=== PATIENT | male | born 1985 | race Caucasian/White ===

== ENCOUNTER → 2024-03-22 06:26 | Outpatient (REF) | payer BC, SELFPAY ==
[2024-03-22 07:36] LABS: % Basophils 1.4 % (0-2); % Eosinophils 10.5 % (0-6); % Immature Granulocytes 0.2 % (0-0.5); % Lymphocytes 40.1 % (20.5-51.1); % Monocytes 8.3 % (1.7-9.3); % Neutrophils 39.5 % (42.2-75.2); Absolute Basophils 0.1 10^3/uL (0-0.2); Absolute Eosinophils 0.5 10^3/uL (0-0.7); Absolute Monocytes 0.4 10^3/uL (0.1-0.6); Hematocrit 45.8 % (39.0-52.0); Mean Corp Hgb Conc. 32.8 g/dL (33.0-37.0); Mean Corpuscular Hgb 31.4 pg (27.0-31.0); Mean Corpuscular Volume 95.8 fL (80.0-94.0); Mean Platelet Volume 10.2 fL (7.4-10.4); Nucleated Red Blood Cells % 0 % (-); Platelet Count 254 10^3/uL (130-400); Red Blood Cell Count 4.78 10^6/uL (4.70-6.10); Red Cell Dist. Width 12.4 % (11.5-14.5); White Blood Cell Count 4.9 10^3/uL (4.8-10.8)
[2024-03-22 07:46] LABS: ALT (SGPT) 29 U/L (0-50); AST (SGOT) 26 U/L (17-59); Albumin 4.4 g/dl (3.5-5.0); Alkaline Phosphatase 55 U/L (38-126); Blood Urea Nitrogen 18 mg/dl (9-20); Calcium 10.1 mg/dl (8.4-10.2); Carbon Dioxide 25 mmol/L (22-30); Chloride 105 mmol/L (98-107); Glucose 91 mg/dl (70-99); HDL Cholesterol 78 mg/dl; LDL Cholesterol, Calculated 139 mg/dl; Potassium 4.9 mmol/L (3.5-5.1); Sodium 139 mmol/L (135-145); Total Bilirubin 0.8 mg/dl (0.2-1.3); Total Cholesterol 234 mg/dl (50-199); Total Protein 6.9 g/dl (6.3-8.2); Triglyceride 87 mg/dl (10-149); Very Low Density Lipoprotein 17 mg/dl (0-30); eGFR > 60.00
[2024-03-22 08:14] LABS: TSH Reflex To Free T4 0.85 uIU/ml (0.47-4.68)
[2024-03-22 10:55] LABS: Folate 12.3 ng/ml (2.76-20); Vitamin B12 709 pg/ml (239-931)
== END ==
LOC: REG 06:26
PROVIDERS: ATTENDING PHYSICIAN Physician Assistant
DX: Z00.00 Encounter for general adult medical examination without abnormal findings (principal); F41.9 Anxiety disorder, unspecified; Z78.9 Other specified health status; E78.00 Pure hypercholesterolemia, unspecified
CPT/HCPCS: 36415; 80053; 80061; 82607; 82746; 84443; 85025

== ENCOUNTER 2024-04-20 09:52 | Outpatient (RCR) | payer BC, SELFPAY | END 2024-04-20 23:59 | disposition home or self-care (01) | LOC: RPT 09:52 | PROVIDERS: ATTENDING PHYSICIAN Physician Assistant | DX: M75.21 Bicipital tendinitis, right shoulder (principal); M54.50 Low back pain, unspecified; Z73.6 Limitation of activities due to disability | CPT/HCPCS: 97110; 97162; 97535 ==

== ENCOUNTER → 2024-04-25 06:45 | Outpatient (REF) | payer BC, SELFPAY | LOC: MRI 3T 06:45 | PROVIDERS: ATTENDING PHYSICIAN Physician Assistant | DX: M25.511 Pain in right shoulder (principal); M75.21 Bicipital tendinitis, right shoulder | CPT/HCPCS: 73221 ==

== ENCOUNTER → 2024-05-07 18:52 | Outpatient (REF) | payer BC, SELFPAY | LOC: MRI 18:52 | PROVIDERS: ATTENDING PHYSICIAN Pain Medicine Interventional Pain Medicine; FAMILY PHYSICIAN Physician Assistant | DX: M54.50 Low back pain, unspecified (principal) | CPT/HCPCS: 72148 ==

== ENCOUNTER 2024-05-11 09:54 | Outpatient (RCR) | payer BC, SELFPAY | END 2024-05-11 23:59 | disposition home or self-care (01) | LOC: RPT 09:54 | PROVIDERS: ATTENDING PHYSICIAN Physician Assistant | DX: M75.21 Bicipital tendinitis, right shoulder (principal); M54.50 Low back pain, unspecified | CPT/HCPCS: 97110; 97535 ==

== ENCOUNTER 2024-06-22 06:11 | Day surgery (SDC) | payer BC, SELFPAY ==
[2024-06-22] VITALS (8 sets, daily range): BP systolic 120–145; BP diastolic 66–90; BMI 32.6
[2024-06-22] MEDS: CELEBREX 200 MG PO (06:13)
[2024-06-22] MEDS: TYLENOL 1000 MG PO (06:13)
[2024-06-22] MEDS: NORMOSOL-R 1000 IV (06:32)
[2024-06-22] MEDS: DILAUDID 0.25 MG IV (08:50)
== END 2024-06-22 10:06 | disposition home or self-care (01) ==
LOC: SDS 06:11
PROVIDERS: ATTENDING PHYSICIAN Orthopaedic Surgery Hand Surgery
DX: M75.121 Complete rotator cuff tear or rupture of right shoulder, not specified as traumatic (principal)
CPT/HCPCS: 23430; 29827; 29826; C1713; C1776

== ENCOUNTER 2024-07-08 06:23 | Outpatient (RCR) | payer BC, SELFPAY | END 2024-07-08 23:59 | disposition home or self-care (01) | LOC: RPT 06:23 | PROVIDERS: ATTENDING PHYSICIAN Physician Assistant Surgical; FAMILY PHYSICIAN Physician Assistant | DX: Z47.89 Encounter for other orthopedic aftercare (principal); Z73.6 Limitation of activities due to disability; M25.511 Pain in right shoulder | CPT/HCPCS: 97110; 97161 ==

== ENCOUNTER 2024-08-04 09:55 | Emergency (ER) | payer BC, SELFPAY ==
[2024-08-04 10:09] VITALS: BP 152/103
[2024-08-04] MEDS: NSS 1000 IV (11:43)
[2024-08-04 11:58] LABS: Urine Albumin Negative (Neg - Trace); Urine Bilirubin Negative (Negative); Urine Character Slightly Cloudy (Clear); Urine Color Yellow; Urine Glucose Negative (Negative); Urine Ketone 2+ (Negative); Urine Leukocyte Negative (Negative); Urine Nitrite Negative (Negative); Urine Occult Blood 4+ (Negative); Urine Specific Gravity 1.015 (<1.030); Urine Urobilinogen Negative (Neg - 1+)
[2024-08-04 12:02] LABS: % Basophils 0.8 % (0-2); % Eosinophils 5.9 % (0-6); % Immature Granulocytes 0.3 % (0-0.5); % Lymphocytes 26.6 % (20.5-51.1); % Monocytes 7.6 % (1.7-9.3); % Neutrophils 58.8 % (42.2-75.2); Absolute Basophils 0.1 10^3/uL (0-0.2); Absolute Eosinophils 0.4 10^3/uL (0-0.7); Absolute Monocytes 0.6 10^3/uL (0.1-0.6); Absolute Neutrophils 4.4 10^3/uL (1.4-6.5); Hematocrit 43.7 % (39.0-52.0); Hemoglobin 15.1 g/dL (13.0-18.0); Mean Corp Hgb Conc. 34.6 g/dL (33.0-37.0); Mean Corpuscular Hgb 30.6 pg (27.0-31.0); Mean Corpuscular Volume 88.6 fL (80.0-94.0); Mean Platelet Volume 9.6 fL (7.4-10.4); Nucleated Red Blood Cells % 0 % (-); Platelet Count 288 10^3/uL (130-400); Red Blood Cell Count 4.93 10^6/uL (4.70-6.10); Red Cell Dist. Width 12.3 % (11.5-14.5); White Blood Cell Count 7.5 10^3/uL (4.8-10.8)
[2024-08-04 12:06] LABS: Urine Red Blood Cell 80-90 /HPF (0-2); Urine Squamous Cell 0-2 /LPF (Few)
[2024-08-04 12:09] VITALS: BP 132/74
[2024-08-04 12:14] LABS: ALT (SGPT) 29 U/L (0-50); AST (SGOT) 26 U/L (17-59); Albumin 4.8 g/dl (3.5-5.0); Alkaline Phosphatase 76 U/L (38-126); Blood Urea Nitrogen 15 mg/dl (9-20); Calcium 10.1 mg/dl (8.4-10.2); Carbon Dioxide 18 mmol/L (22-30); Chloride 103 mmol/L (98-107); Glucose 88 mg/dl (70-99); Potassium 4.3 mmol/L (3.5-5.1); Sodium 138 mmol/L (135-145); Total Bilirubin 1.1 mg/dl (0.2-1.3); Total Protein 7.2 g/dl (6.3-8.2); eGFR > 60.00
[2024-08-04 13:54] VITALS: BP 136/74
[2024-08-04] MEDS: TORADOL 30 MG IV (14:11)
[2024-08-04] MEDS: FLOMAX 0.4 MG PO (14:11)
--- NOTE | 2024-08-04 14:29 | ED.GENMED ---
History of Present Illness
General
Chief Complaint: Flank Pain
Source: patient
Exam Limitations: none
Time Seen by Provider: 08/04/24 10:49
Nursing documentation reviewed up to this point in time: agreed with
History of Present Illness
History of Present Illness:
39-year-old male past medical history of kidney stones presenting to the emergency department today with concerns of left-sided flank pain over the past day mainly to the left flank area to mild nausea this morning with no ongoing nausea or
vomiting. Denies any fevers chest pain shortness of breath. Last urinary intervention was a few years ago.
Past History
Past History
ED Past Medical History: Other (Has had similar back pain one or 2 times per year for the past 4 years. States she had x-rays of the back before but never had an MRI. )
Social History
Tobacco: Former smoker (Quit 6 months ago)
Personal:
Living: with family
Employment: Employed
Review of Systems
Review of Systems
Allergies reviewed?: Yes
All Other Systems: ROS reviewed and negative except as documented in HPI and ROS
Phy Exam
Physical Exam
Physical Exam:
GENERAL: Alert , in no apparent distress
EYE: pupils equal and reactive
NECK: Supple, no significant adenopathy.
ENT: o/p clr, mmm.
CARDIAC: Regular rate and rhythm .
LUNGS: Clear breath sounds bilaterally, no acute respiratory distress, no wheezes/rales/rhonchi
ABDOMEN: Soft, without focal tenderness, no r/g, no cvat
NEUROLOGICAL: Alert and oriented, no focal neuro deficits
SKIN: Warm and dry, skin intact.
MUSCULOSKELETAL: No edema, well perfused.
PSYCH: Normal and appropriate interaction.
Course
Orders/Labs/Results
Orders:
Orders
08/04/24 11:37
Urine Culture Reflexed from UA [Urinalysis Reflex To Culture] Urgent
Date Specimen was Collected: 08/04/24
Time Specimen was Collected: 11:35
Urine Microscopic Reflex Cult Urgent
08/04/24 11:39
CT Abd/pel Without Iv Or Oral Urgent
Comment:
Reason For Exam: flank pain
0.9% Sodium Chloride 1000 ml [Nss] 1,000 ml IV BOLUS
08/04/24 11:42
Complete Blood Count/With Diff Urgent
Comprehensive Metabolic Panel Urgent
08/04/24 14:02
Ketorolac [Toradol] 30 mg IV NOW STA
Tamsulosin [Flomax] 0.4 mg PO NOW STA
Abnormal Lab Results
08/04/24 08/04/24
11:37 11:42
Carbon Dioxide 18 L mmol/L
(22-30)
Urine Ketones 2+ A
(Negative)
Ur Occult Blood Reflex 4+ A
(Negative)
Urine RBC 80-90 A /HPF
(0-2)
08/04/24 11:42
08/04/24 11:42
Vital Signs
Initial and Last Documented VS:
Initial Vital Signs
Temp Pulse Resp BP Pulse Ox
98.9 F 80 18 152/103 100
08/04/24 10:09 08/04/24 10:09 08/04/24 10:09 08/04/24 10:09 08/04/24 10:09
Last Documented Vital Signs
Temp Pulse Resp BP Pulse Ox
98.9 F 82 18 136/74 98
08/04/24 10:09 08/04/24 13:54 08/04/24 13:54 08/04/24 13:54 08/04/24 13:54
MDM/Problems Addressed
MDM/Problems Addressed:
39-year-old male presenting to the emergency department today with concerns of left-sided flank pain. Afebrile in no obvious distress here had some nausea earlier but not ongoing. Labs were obtained without acute abnormalities no white count
normal renal function urinalysis without signs of infection. CT scan showing 3 mm stone at the distal ureter. Patient appears stable for trial of passage as an outpatient given information for urology follow-up return precautions given.
*Critical Care Note
Total Time (30-74mins, 75-104mins- exclusive of procedures): Not Applicable
ED Attending Note
-
Portions of this chart may have been created with voice recognition software.� Occasional wrong word or��sound alike� substitutions may have occurred due to the inherent limitations of voice recognition software.
Discharge Plan
Departure
Patient Disposition: Home (Routine Discharge)
Date of Disposition: 08/04/24
Time of Disposition: 14:32
Patient with high blood pressure during this ER visit?: No
Condition: Good
Covid-19: Not Applicable
Discharge Problem:
Calculus of left ureter
Instructions: Kidney Stones (DC), How to Strain Your Urine
Prescriptions:
New
ibuprofen 600 mg tablet
600 mg PO Q6H PRN (Reason: Pain) Qty: 14 0RF
tamsulosin [Flomax] 0.4 mg capsule
0.4 mg PO HS Qty: 10 0RF
ondansetron 4 mg tablet,disintegrating
4 mg PO Q6H PRN (Reason: nausea and vomiting) Qty: 7 0RF
No Action
multivitamin Tablet
1 tab PO DAILY
mecobalamin (vitamin B12) 1,000 mcg Tablet,Chewable
1,000 mcg PO DAILY
alprazolam 0.5 mg Tablet
0.5 mg PO PRN PRN (Reason: anxiety)
Referrals:
Gina Abdullahi PA [Family Provider] -
Chet Hardy MD [Active] - Follow up in 5-7 days
Activity Restrictions/Additional Instructions:
You came to the emergency department today with concerns of flank pain you are found to have a distal ureteral stone that is 3 mm in size. Please take the prescribed medications and follow-up closely with the urologist for further management.
Return to the emergency department for any worsening, new or concerning symptoms.
Interventions
Interventions:
*Risk Screen - Suicide Last Done: 08/04/24 10:09
*General Assessment Last Done: 08/04/24 10:09
*Neglect/Abuse Screening Last Done: 08/04/24 10:09
ED- Fall Risk Assessment Last Done: 08/04/24 10:53
XX-Ctvyhy-Eqkvbkmeag Assessment Last Done: 08/04/24 10:53
ED-Male Genitourinary Assessment Last Done: 08/04/24 10:53
Discharge Date and Time
Print Language: MAORI
== END 2024-08-04 14:41 | disposition home or self-care (01) ==
LOC: EMR 09:55
PROVIDERS: Physician Assistant; EMERGENCY PHYSICIAN Emergency Medicine; FAMILY PHYSICIAN Physician Assistant
DX: N20.1 Calculus of ureter (principal); R11.0 Nausea; M19.90 Unspecified osteoarthritis, unspecified site; M10.9 Gout, unspecified; F41.9 Anxiety disorder, unspecified; F32.A Depression, unspecified; Z87.442 Personal history of urinary calculi; Z87.891 Personal history of nicotine dependence; Z88.0 Allergy status to penicillin
CPT/HCPCS: 99284; 96374; 96361; 74176; 80053; 81003; 81015; 85025

== ENCOUNTER 2024-08-05 06:30 | Outpatient (RCR) | payer BC, SELFPAY | END 2024-08-05 23:59 | disposition home or self-care (01) | LOC: RPT 06:30 | PROVIDERS: ATTENDING PHYSICIAN Physician Assistant Surgical; FAMILY PHYSICIAN Physician Assistant | DX: M62.81 Muscle weakness (generalized) (principal); Z47.89 Encounter for other orthopedic aftercare; Z73.6 Limitation of activities due to disability | CPT/HCPCS: 97010; 97110; 97140; 97530 ==

== ENCOUNTER 2024-09-09 08:44 | Outpatient (RCR) | payer BC, SELFPAY | END 2024-09-09 23:59 | disposition home or self-care (01) | LOC: RPT 08:44 | PROVIDERS: ATTENDING PHYSICIAN Physician Assistant Surgical; FAMILY PHYSICIAN Physician Assistant | DX: Z47.89 Encounter for other orthopedic aftercare (principal); Z73.6 Limitation of activities due to disability; M62.81 Muscle weakness (generalized); M25.511 Pain in right shoulder | CPT/HCPCS: 97110; 97140 ==

== ENCOUNTER 2024-10-08 08:48 | Outpatient (RCR) | payer BC, SELFPAY | END 2024-10-08 23:59 | disposition home or self-care (01) | LOC: RPT 08:48 | PROVIDERS: ATTENDING PHYSICIAN Physician Assistant Surgical; FAMILY PHYSICIAN Physician Assistant | DX: Z47.89 Encounter for other orthopedic aftercare (principal); Z73.6 Limitation of activities due to disability; M62.81 Muscle weakness (generalized); M25.511 Pain in right shoulder | CPT/HCPCS: 97110; 97140 ==

== ENCOUNTER → 2024-10-20 17:35 | Outpatient (REF) | payer BC, SELFPAY | LOC: PAVMRI 17:35 | PROVIDERS: ATTENDING PHYSICIAN Physician Assistant | DX: M65.4 Radial styloid tenosynovitis [de Quervain] (principal); G56.91 Unspecified mononeuropathy of right upper limb; M25.512 Pain in left shoulder; M24.812 Other specific joint derangements of left shoulder, not elsewhere classified | CPT/HCPCS: 73221 ==

== ENCOUNTER 2024-11-09 06:22 | Outpatient (RCR) | payer BC, SELFPAY | END 2024-11-09 23:59 | disposition home or self-care (01) | LOC: RPT 06:22 | PROVIDERS: ATTENDING PHYSICIAN Physician Assistant Surgical; FAMILY PHYSICIAN Physician Assistant | DX: Z47.89 Encounter for other orthopedic aftercare (principal); Z73.6 Limitation of activities due to disability; M62.81 Muscle weakness (generalized); M25.511 Pain in right shoulder; M25.512 Pain in left shoulder | CPT/HCPCS: 97110; 97112; 97140 ==

== ENCOUNTER 2024-12-07 10:45 | Outpatient (RCR) | payer BC, SELFPAY | END 2024-12-07 23:59 | disposition home or self-care (01) | LOC: RPT 10:45 | PROVIDERS: ATTENDING PHYSICIAN Physician Assistant Surgical; FAMILY PHYSICIAN Physician Assistant | DX: Z47.89 Encounter for other orthopedic aftercare (principal); Z73.6 Limitation of activities due to disability; M62.81 Muscle weakness (generalized); M25.511 Pain in right shoulder; M25.512 Pain in left shoulder | CPT/HCPCS: 97110; 97112 ==

== ENCOUNTER 2024-12-28 08:49 | Outpatient (RCR) | payer BC, SELFPAY | END 2024-12-28 23:59 | disposition home or self-care (01) | LOC: RPT 08:49 | PROVIDERS: ATTENDING PHYSICIAN Physician Assistant Surgical; FAMILY PHYSICIAN Physician Assistant | DX: Z47.89 Encounter for other orthopedic aftercare (principal); Z73.6 Limitation of activities due to disability; M62.81 Muscle weakness (generalized); M25.511 Pain in right shoulder; M25.512 Pain in left shoulder | CPT/HCPCS: 97110; 97112 ==

== ENCOUNTER → 2025-02-07 10:54 | Outpatient (REF) | payer OTHER, BC, SELFPAY ==
[2025-02-07 21:51] LABS: Rubella Positive
[2025-02-08 12:13] LABS: Mumps Virus IgG Positive; Rubeola (Measles) IgG Positive; Varicella Zoster IgG (VZV) Positive
[2025-02-09 06:16] LABS: Quantiferon Mitogen minus NIL 9.98 IU/mL; Quantiferon NIL 0.02 IU/mL; Quantiferon Plus TB1 minus NIL 0.01 IU/mL (<=0.34); Quantiferon TB Gold Plus Negative (Negative)
== END ==
LOC: OHS 10:54
PROVIDERS: ATTENDING PHYSICIAN Nurse Practitioner Family
DX: Z23 Encounter for immunization (principal)
CPT/HCPCS: 36415; 86480; 86735; 86762; 86765; 86787

== ENCOUNTER 2025-05-03 07:34 | Outpatient (RCR) | payer BC, SELFPAY | END 2025-05-03 23:59 | disposition home or self-care (01) | LOC: RPT 07:34 | PROVIDERS: ATTENDING PHYSICIAN Physician Assistant | DX: M75.112 Incomplete rotator cuff tear or rupture of left shoulder, not specified as traumatic (principal); Z73.6 Limitation of activities due to disability; M62.81 Muscle weakness (generalized) | CPT/HCPCS: 97110; 97161; 97530 ==

== ENCOUNTER → 2025-10-24 10:49 | Outpatient (REF) | payer BC, SELFPAY ==
[2025-10-24 11:30] LABS: Hematocrit 44.8 % (39.0-52.0); Hemoglobin 14.8 g/dL (13.0-18.0); Mean Corp Hgb Conc. 33.0 g/dL (33.0-37.0); Mean Corpuscular Volume 93.3 fL (80.0-94.0); Nucleated Red Blood Cells % 0 % (-); Platelet Count 251 10^3/uL (130-400); Red Cell Dist. Width 12.6 % (11.5-14.5)
[2025-10-24 12:06] LABS: ALT (SGPT) 35 U/L (0-50); AST (SGOT) 27 U/L (17-59); Albumin 4.7 g/dl (3.5-5.0); Alkaline Phosphatase 60 U/L (38-126); Blood Urea Nitrogen 15 mg/dl (9-20); Calcium 9.7 mg/dl (8.4-10.2); Carbon Dioxide 26 mmol/L (22-30); Chloride 103 mmol/L (98-107); Glucose 81 mg/dl (70-99); HDL Cholesterol 70 mg/dl; Potassium 4.8 mmol/L (3.5-5.1); Sodium 136 mmol/L (135-145); Total Protein 7.3 g/dl (6.3-8.2); Uric Acid 7.5 mg/dl (3.5-8.5); Very Low Density Lipoprotein 20 mg/dl (0-30); eGFR > 60.00
[2025-10-24 12:12] LABS: LDL Cholesterol, Calculated 126 mg/dl
[2025-10-24 12:38] LABS: PSA, Total - Screen 0.42 ng/ml (0.0-4.0)
== END ==
LOC: REG 10:49
PROVIDERS: ATTENDING PHYSICIAN Physician Assistant
DX: F41.9 Anxiety disorder, unspecified (principal); E78.00 Pure hypercholesterolemia, unspecified; Z87.39 Personal history of other diseases of the musculoskeletal system and connective tissue; Z80.42 Family history of malignant neoplasm of prostate
CPT/HCPCS: 36415; 80053; 80061; 84443; 84550; 85025; G0103